=== PATIENT | female | born 2000 | race African-American/Black ===

== ENCOUNTER 2023-12-01 18:06 | Emergency (ER) | payer OTHER, SELFPAY ==
[2023-12-01 18:19] VITALS: BP 132/83; PULSE 77; RESP 16; TEMP 36.5; O2SAT 100
--- NOTE | 2023-12-01 18:30 | ED.SKABFB ---
HPI - Skin/Abscess/Foreign Bdy General Chief complaint: Skin/Abscess/Foreign Body Stated complaint: Rash History of Present Illness HPI narrative: Patient presents with an itchy rash to left side of her neck. No drainage no streaking no concern for infection. Patient states no change in lifestyle no shortness of breath no chest pain. Patient is not taking anything [id number] for symptoms. Related Data Allergies Allergy/AdvReac Type Severity Reaction Status Date / Time No Known Allergies Allergy Verified 12/01/23 18:20 Review of Systems Review of Systems: CONSTITUTIONAL: Denies fever, chills, or sweats. EYES: Denies visual changes, redness, or discharge. ENT: Denies rhinorrhea, congestion, sore throat, or otalgia. CARDIOVASCULAR: Denies chest pain, palpitations, or edema. RESPIRATORY: Denies cough or dyspnea. GASTROINTESTINAL: Denies abdominal pain, nausea, vomiting, or diarrhea. GENITOURINARY: Denies dysuria or hematuria. SKIN: Denies rash or itching. MUSCULOSKELETAL: Denies back pain, joint pain, or myalgia. NEUROLOGIC: Denies headache, numbness, or weakness. PSYCHIATRIC: Denies anxiety or depression. PMFSH Comments At time of signature, agree with nursing past medical, surgical, social and family history. There is no relevant family history pertinent to the presenting complaint Exam Narrative: GENERAL: Well-appearing, well-nourished, and in no acute distress. HEAD: Normocephalic, atraumatic. EYES: PERRLA and EOMI. ENT: Nares clear, no rhinorrhea or epistaxis. Mucous membranes moist. NECK: Supple. CHEST: Clear to auscultation. No respiratory distress. HEART: Regular rate and rhythm. No murmur heard. Normal peripheral pulses. ABDOMEN: Soft, nontender, nondistended, normal active bowel sounds. EXTREMITIES: Normal range of motion. No edema. SKIN: Warm, dry, no rash. Red raised areas welts consistent with hives to left side of neck no concern for secondary infection NEURO: No focal deficits. Alert and oriented x3. Joesph Coma Scale Eye Opening: Spontaneous 4 [place] Coma Scale Motor: Obeys Commands 6 [place] Coma Scale Verbal: Oriented 5 [place] Coma Scale Total 15 Course Course Level of Care: Express Care Visit Vital Signs Vital signs: Vital Signs Temperature 36.5 C 12/01/23 18:19 Pulse Rate 77 12/01/23 18:19 Respiratory Rate 16 12/01/23 18:19 Blood Pressure 132/83 12/01/23 18:19 Pulse Oximetry 100 12/01/23 18:19 Oxygen Delivery Room Air 12/01/23 18:19 Temperature 36.5 C 12/01/23 18:19 Pulse Rate 77 12/01/23 18:19 Respiratory Rate 16 12/01/23 18:19 Blood Pressure 132/83 12/01/23 18:19 Pulse Oximetry 100 12/01/23 18:19 Oxygen Delivery Room Air 12/01/23 18:19 Please VENITA schedule a followup visit with your personal physician for further evaluation and treatment. Including recheck and discussion of your blood pressure. If your symptoms persist, change or worsen significantly before you can contact your personal physician then please, without delay, go to the emergency department for further evaluation Discharge Plan Discharge Clinical Impression: Urticaria Patient Disposition: Home, Self-Care Condition: Stable Instructions: Urticaria (ED) Additional Instructions: -Hives are usually caused by skin contact with an irritant such as plants, new foods, new medications, new personal or household products, these can also be caused by viral infection - Cool compresses can be beneficial to help with swelling and itching, please apply these for 20 minutes at a time -If there is possible contact to an allergen to the skin surface area, a shower or bath may be beneficial, please change clothes -If over 1 year of age: can give Benadryl every 6--8 hours for hives that are itching, this is available over the counter. This medication is weight based. Please continue to give this until hives are gone for 12 hours. It may cause drowsiness. -You can
[2023-12-01 18:32] VITALS: BP 132/83; PULSE 77; RESP 16; TEMP 36.5; O2SAT 100
== END 2023-12-01 18:38 | disposition home or self-care (01) ==
PROVIDERS: Emergency Provider Nurse Practitioner Family
DX: L50.9 Urticaria, unspecified (principal)
CPT/HCPCS: 99213; G0463